=== PATIENT | male | born 1965 | race African-American/Black ===

== ENCOUNTER 2016-10-28 12:21 | Inpatient (IN) | payer OTHER ==
[2016-10-28 12:39] VITALS: BMI 22.4
--- NOTE | 2016-10-28 14:58 | HP ---
CIWA Score - CIWA Score Nausea/Vomitin Muscle Tremors: 4-Moderate,w/Arms Extend Anxiety: 3 Agitation: 2 Paroxysmal Sweats: 3 Orientation: 0-Oriented Tacttile Disturbances: 2-Mild Itch/Numbness/Burn Auditory Disturbances: 0-None Visual Disturbances: 0-None Headache: 2-Mild CIWA-Ar Total Score: 19 Admission ROS BHS - HPI Chief Complaint: "I am tire of using drugs and not feeling well. I need to stop." Pt. is here to detox from Alcohol. Allergies/Adverse Reactions: Allergies Allergy/AdvReac Type Severity Reaction Status Date / Time No Known Allergies Allergy Verified 10/28/16 13:11 History of Present Illness: Pt. is a 50 YO male here to Detox from Alcohol. Pt. had 1 previous Detox admission at [facility] many years ago. Exam Limitations: No Limitations - Ebola screening Have you traveled outside of the country in the last 21 days: No Have you had contact with anyone from an Ebola affected area: No Have you been sick,other than usual withdrawal symptoms: No Do you have a fever: No - Review of Systems Constitutional: Chills, Diaphoresis, Malaise, Night Sweats, Changes in sleep, Unintentional Wgt. Loss (Lost 10-15 lbs. over last 1 month.) EENT: reports: No Symptoms Reported Respiratory: reports: No Symptoms reported Cardiac: reports: Palpitations, Syncope (Last Episode: approx. 2 weeks ago.) GI: reports: Nausea : reports: Frequency, Urgency, Other (Difficulty initiating stream to void.) Musculoskeletal: reports: Joint Pain Integumentary: reports: No Symptoms Reported Neuro: reports: Headache, Numbness (Fingertips of Bilateral Hands and toes of Bilateral Feet.), Tingling (Fingertips of Bilateral Hands and toes of Bilateral Feet.), Tremors Endocrine: reports: No Symptoms Reported Hematology: reports: No Symptoms Reported Psychiatric: reports: Judgement Intact, Mood/Affect Appropiate, Orientated x3, Anxious Other Systems: Reviewed and Negative Patient History - Patient Medical History Hx Anemia: No Hx Asthma: No Hx Chronic Obstructive Pulmonary Disease (COPD): No Hx Cancer: No Hx Cardiac Disorders: No Hx Congestive Heart Failure: No Hx Hypertension: No Hx Hypercholesterolemia: No Hx Pacemaker: No HX Cerebrovascular Accident: No Hx Seizures: No Hx Dementia: No Hx Diabetes: No Hx Gastrointestinal Disorders: No Hx Liver Disease: No Hx Genitourinary Disorders: Yes (Prostate Disorder, Unsure of Name.) Hx Sexually Transmitted Disorders: No Hx Renal Disease (ESRD): No Hx Thyroid Disease: No Hx Human Immunodeficiency Virus (HIV): No (Last Tested approx. 6 months ago: NEGATIVE.) Hx Hepatitis C: No (Last Tested approx. 6 months ago: NEGATIVE.) Hx Depression: No Hx Suicide Attempt: No (PATIENT DENIES CURRENT SI / HI.) Hx Bipolar Disorder: No Hx Schizophrenia: No - Patient Surgical History Past Surgical History: No Hx Neurologic Surgery: No Hx Cataract Extraction: No Hx Cardiac Surgery: No Hx Lung Surgery: No Hx Breast Surgery: No Hx Breast Biopsy: No Hx Abdominal Surgery: No Hx Appendectomy: No Hx Cholecystectomy: No Hx Genitourinary Surgery: No Hx Orthopedic Surgery: No Anesthesia Reaction: No - PPD History Previous Implant?: Yes Documented Results: Negative w/o proof Implanted On Prior [facility] Admission?: No PPD to be Administered?: Yes - Reproductive History Patient is a Female of Child Bearing Age (11 -55 yrs old): No (PATIENT IS MALE.) - Smoking Cessation Smoking history: Current every day smoker Have you smoked in the past 12 months: Yes Aproximately how many cigarettes per day: 6 Cigars Per Day: 0 Hx Chewing Tobacco Use: No Initiated information on smoking cessation: Yes 'Breaking Loose' booklet given: 10/28/16 (GIVEN ON UNIT.) - Substance & Tx. History Hx Alcohol Use: Yes Hx Substance Use: Yes Substance Use Type: Alcohol, Cocaine, Marijuana Hx Substance Use Treatment: Yes (1 Previous Detox admission at [facility].) - Substances Abused Alcohol Route: Oral Frequency: Daily Amount used: vodka(1-2 pints) Age of first use: 18 Date of Last Use: 10/27/16 Cocaine Route: Smoking Frequency: Daily Amount used: $100 Age of first use: 18 Date of Last Use: 10/27/16 Marijuana/Hashish Route: Smoking Frequency: Daily Amount used: $20 Age of first use: 10 Date of Last Use: 10/27/16 Family Disease History - Family Disease History Family Disease History: CA: Sister (Breast.) Admission Physical Exam BHS - Vital Signs Vital Signs: Vital Signs - 24 hr 10/28/16 12:37 Temperature 96.0 F L Pulse Rate 74 Respiratory 20 Rate Blood Pressure 119/72 - Physical General Appearance: Yes: No Apparent Distress, Nourished, Appropriately Dressed , Tremorous HEENTM: Yes: Hearing grossly Normal, Normocephalic, Normal Voice, CYN, Pharynx Normal Respiratory: Yes: Chest Non-Tender, Lungs Clear, No Respiratory Distress Neck: Yes: No masses,lesions,Nodules, Supple, Trachea in good position Breast: Yes: Breast Exam Deferred Cardiology: Yes: Regular Rhythm, Regular Rate, S1, S2 Abdominal: Yes: Normal Bowel Sounds, Non Tender, Flat, Soft Genitourinary: Yes: Frequency, Uregency, Pain (Difficulty Initiating Void Stream.) Back: Yes: Normal Inspection Musculoskeletal: Yes: full range of Motion, Gait Steady, Muscle Pain Extremities: Yes: Normal Range of Motion, Non-Tender, Tremors Neurological: Yes: Fully Oriented, Alert, Normal Mood/Affect, Normal Response Integumentary: Yes: Normal Color, Dry, Warm Lymphatic: Yes: Within Normal Limits - Diagnostic (1) Alcohol dependence with uncomplicated withdrawal Current Visit: Yes Status: Acute (2) Cocaine dependence, uncomplicated Current Visit: Yes Status: Acute (3) Cannabis dependence, uncomplicated Current Visit: Yes Status: Acute (4) Nicotine dependence Current Visit: Yes Status: Chronic Qualifiers: Nicotine product type: cigarettes Substance use status: uncomplicated Qualified Code(s): F17.210 - Nicotine dependence, cigarettes, uncomplicated (5) Disorder of prostate, unspecified Current Visit: Yes Status: Chronic Cleared for Admission [facility] - Detox or Rehab [facility] Level of Care: Medically Managed Detox Regimen/Protocol: Librium [facility] Breath Alcohol Content Breath Alcohol Content: 0 Urine Drug Screen - Results Drug Screen Negative: No Urine Drug Screen Results: THC-Marijuana, KANA-Cocaine
[2016-10-28] MEDS ORDERED: MENTHOL/PHENOL 1 EACH UD MM PRN (15:16)
[2016-10-28] MEDS ORDERED: MAG HYDROX/AL HYDROX/SIMETH 30 ML UNIT-DOSE CUP PO PRN (15:16)
[2016-10-28] MEDS ORDERED: ACETAMINOPHEN 325 MG TABLET (FP) PO PRN (15:16)
[2016-10-28] MEDS ORDERED: hydrOXYzine PAMOATE 50 MG CAPSULE (FP) PO PRN (15:16)
[2016-10-28] MEDS ORDERED: IBUPROFEN 400 MG TABLET (FP) PO PRN (15:16)
[2016-10-28] MEDS ORDERED: MAGNESIUM CITRATE 300 ML BOTTLE PO PRN (15:16)
[2016-10-28] MEDS ORDERED: P-EPHED 60MG/TRIPROLIDI 2.5MG TABLET PO PRN (15:16)
[2016-10-28] MEDS ORDERED: NICOTINE POLACRILEX 2 MG GUM BUC PRN (15:16)
[2016-10-28] MEDS ORDERED: MAGNESIUM HYDROX 2400MG/30ML ORAL SUSPENSION 30 ML CUP PO PRN (15:16)
[2016-10-28] MEDS ORDERED: diphenhydrAMINE HCL 50 MG CAPSULE PO PRN (15:16)
[2016-10-28] MEDS ORDERED: LOPERAMIDE HCL 2 MG CAPSULE PO PRN (15:16)
[2016-10-28] MEDS ORDERED: chlordiazePOXIDE HCL 25 MG CAPSULE PO ONE (15:16)
[2016-10-28] MEDS ORDERED: guaiFENesin/D-METHORPHAN HB 10 ML UNIT-DOSE CUPS PO PRN (15:16)
[2016-10-28] MEDS ORDERED: chlordiazePOXIDE HCL 25 MG CAPSULE PO PRN (15:16)
[2016-10-28] MEDS: NICOTINE 14 MG/24 HOURS TOPICAL PATCH TD SCH (17:53)
[2016-10-28] MEDS: chlordiazePOXIDE HCL 25 MG CAPSULE PO SCH ×2 (17:53→23:25)
[2016-10-28 18:18] LABS: URINE APPEARANCE CLEAR; URINE BILIRUBIN NEGATIVE (NEGATIVE); URINE BLOOD NEGATIVE (NEGATIVE); URINE COLOR AMBER; URINE GLUCOSE (UA) NEGATIVE (NEGATIVE); URINE KETONE TRACE (NEGATIVE); URINE LEUK ESTERASE NEGATIVE (NEGATIVE); URINE NITRITE NEGATIVE (NEGATIVE); URINE UROBILINOGEN 2.0 E.U/dl E.U./dl (0.2-1.0)
[2016-10-28] MEDS ORDERED: ASPIRIN 325 MG ENTERIC COATED TABLET (FP) PO ONE (18:19)
--- NOTE | 2016-10-28 18:28 | PN ---
BHS Progress Note Note: Admission EKG reveals ST elevation in anterior leads with T-Wave invertion in 2, 3,avf.Pt. denies chest pain,however was told in the past that EKG was abnormal he does not know what the abnormality was. Vital Signs - 8 hr 10/28/16 12:37 Temperature 96.0 F L Pulse Rate 74 Respiratory 20 Rate Blood Pressure 119/72 Lungs : Clear Heart : RR,no murmur Dx. : Cocaine induced ischemia vs OR P : Transfer to ED, report given to Ms. AvilaMELT HOUSE SUPERVISOR
[2016-10-28 18:42] LABS: URINE PROTEIN 1+ (NEGATIVE)
[2016-10-28 18:46] LABS: URINE HYALINE CAST 3 /lpf; URINE MUCUS MODERATE; URINE RBC 3 /hpf (0-3); URINE WBC 1 /hpf (3-5)
[2016-10-28] MEDS: ASPIRIN COATED 81 MG TABLET.EC PO SCH (18:48)
[2016-10-28] MEDS: THIAMINE HCL 100 MG TABLET (FP) PO SCH (23:25)
[2016-10-29] MEDS: chlordiazePOXIDE HCL 25 MG CAPSULE PO SCH ×4 (05:33→22:39)
[2016-10-29] MEDS: TAMSULOSIN HCL 0.4 MG CAP.ER.24H (FP) PO SCH (09:29)
[2016-10-29] MEDS: PRENATAL VITAMINS W/ FOLIC ACID TABLET (FP) PO SCH (10:18)
[2016-10-29] MEDS: ASPIRIN COATED 81 MG TABLET.EC PO SCH (10:18)
[2016-10-29] MEDS: NICOTINE 14 MG/24 HOURS TOPICAL PATCH TD SCH (10:19)
--- NOTE | 2016-10-29 11:00 | EKG ---
Test Reason : Blood Pressure : / mmHG Vent. Rate : 052 BPM Atrial Rate : 052 BPM P-R Int : 160 ms QRS Dur : 114 ms QT Int : 456 ms P-R-T Axes : 014 066 -14 degrees QTc Int : 424 ms SINUS BRADYCARDIA VOLTAGE CRITERIA FOR LEFT VENTRICULAR HYPERTROPHY ST ELEVATION CONSIDER ANTEROLATERAL INJURY OR ACUTE INFARCT ACUTE MA / STEMI ABNORMAL ECG NO PREVIOUS ECGS AVAILABLE Confirmed by LEOLA HICKS, YVROSE ([id number]) on 10/29/2016 11:00:11 AM Referred By: Confirmed By:YVROSE BHAGAT MD
--- NOTE | 2016-10-29 13:13 | PN ---
[facility] CIWA - CIWA Score Nausea/Vomitin-Mild Nausea/No Vomiting Muscle Tremors: 4-Moderate,w/Arms Extend Anxiety: 4-Mod. Anxious/Guarded Agitation: 3 Paroxysmal Sweats: No Perspiration Orientation: 0-Oriented Tacttile Disturbances: 1-Very Mild Itch/Numbness Auditory Disturbances: 0-None Visual Disturbances: 0-None Headache: 2-Mild CIWA-Ar Total Score: 15 BHS Progress Note (SOAP) Subjective: Anxious, sweating, tremor, chills, interrupted sleep Objective: 10/29/16 13:10 Last Vital Signs Temp Pulse Resp BP Pulse Ox 98.6 F 66 18 115/83 10/29/16 09:17 10/29/16 09:17 10/29/16 09:17 10/29/16 09:17 Laboratory Tests 10/28/16 18:07 Urine Color Melody Urine Appearance Clear Urine pH 5.0 Ur Specific Archbold >= 1.030 H Urine Protein 1+ H Urine Glucose (UA) Negative Urine Ketones Trace H Urine Blood Negative Urine Nitrite Negative Urine Bilirubin Negative Urine Urobilinogen 2.0 e.u/dl Ur Leukocyte Esterase Negative Urine RBC 3 Urine WBC 1 Hyaline Casts 3 Urine Mucus Moderate UA: noted (1+ protein), admission labs in progress Assessment: 10/29/16 13:11 Withdrawal symptoms Noted with proteinuria Plan: Continue detox Proteinuria: encouraged to drink lots of water, repeat UA in AM Follow up on admission lab results
[2016-10-29 14:16] LABS: MCH 27.7 pg (25.7-33.7); MCHC 32.9 g/dl (32.0-35.9); MEAN CELL VOLUME 84.1 fl (80-96); MEAN PLT VOLUME 8.3 fl (7.5-11.1); PLATELET COUNT 208 K/MM3 (134-434); RDW 15.9 % (11.9-15.9); WHITE BLOOD COUNT 5.4 K/mm3 (4.0-10.0)
[2016-10-29 14:25] LABS: ALBUMIN 3.5 g/dl (3.4-5.0); BILIRUBIN,TOTAL 0.4 mg/dL (0.2-1.0); CALCIUM 8.6 mg/dL (8.5-10.1); COCKROFT - GAULT 77.17; CREATININE 1.3 mg/dL (0.7-1.3); TOT PROT 6.4 g/dl (6.4-8.2)
[2016-10-29 14:42] LABS: HIV 1 & 2 AB NEGATIVE; HIV 1 AGp24 NEGATIVE
[2016-10-29] MEDS: THIAMINE HCL 100 MG TABLET (FP) PO SCH (22:39)
[2016-10-30] MEDS: chlordiazePOXIDE HCL 25 MG CAPSULE PO SCH ×2 (05:31→10:10)
[2016-10-30] MEDS: TAMSULOSIN HCL 0.4 MG CAP.ER.24H (FP) PO SCH (10:10)
[2016-10-30] MEDS: PRENATAL VITAMINS W/ FOLIC ACID TABLET (FP) PO SCH (10:10)
[2016-10-30] MEDS: ASPIRIN COATED 81 MG TABLET.EC PO SCH (10:10)
[2016-10-30] MEDS: NICOTINE 14 MG/24 HOURS TOPICAL PATCH TD SCH (10:12)
--- NOTE | 2016-10-30 11:48 | PN ---
S CIWA - CIWA Score Nausea/Vomitin-No Nausea/No Vomiting Muscle Tremors: 3 Anxiety: 4-Mod. Anxious/Guarded Agitation: 3 Paroxysmal Sweats: 3 Orientation: 0-Oriented Tacttile Disturbances: 0-None Auditory Disturbances: 0-None Visual Disturbances: 0-None Headache: 0-None Present CIWA-Ar Total Score: 13 BHS Progress Note (SOAP) Subjective: Pt. was sent to ED because of ST elevation in graciela-lateral leads with T-wave inversion in the inferior leads.[facility]. Pt. is known to [facility],they were able to compare with previous EKGs. No changes were noted from previous EKG, cardiac enzymes are negative there no cardiac cath needed. Moreover they provided us with information concerning pt.' s mental health:he's on seroquel & celexa. Objective: 10/30/16 11:48 Vital Signs - 8 hr 10/30/16 10/30/16 06:13 09:14 Temperature 97.0 F L 97.4 F L Pulse Rate 61 70 Respiratory 16 18 Rate Blood Pressure 104/77 108/66 Laboratory Last Values WBC 5.4 K/mm3 (4.0-10.0) 10/29/16 07:12 RBC 4.78 M/mm3 (4.00-5.60) 10/29/16 07:12 Hgb 13.2 GM/dL (11.7-16.9) 10/29/16 07:12 Hct 40.2 % (35.4-49) 10/29/16 07:12 MCV 84.1 fl (80-96) 10/29/16 07:12 MCHC 32.9 g/dl (32.0-35.9) 10/29/16 07:12 RDW 15.9 % (11.9-15.9) 10/29/16 07:12 Plt Count 208 K/MM3 (134-434) 10/29/16 07:12 MPV 8.3 fl (7.5-11.1) 10/29/16 07:12 Sickle Cell Screen Negative (NEGATIVE) 10/29/16 07:12 Sodium 143 mmol/L (136-145) 10/29/16 07:12 Potassium 3.7 mmol/L (3.5-5.1) 10/29/16 07:12 Chloride 105 mmol/L (98-107) 10/29/16 07:12 Carbon Dioxide 27 mmol/L (21-32) 10/29/16 07:12 Anion Gap 11 (8-16) 10/29/16 07:12 BUN 13 mg/dL (7-18) 10/29/16 07:12 Creatinine 1.3 mg/dL (0.7-1.3) 10/29/16 07:12 Creat Clearance w eGFR 58.67 (>60) 10/29/16 07:12 Random Glucose 97 mg/dL (74-106) 10/29/16 07:12 Calcium 8.6 mg/dL (8.5-10.1) 10/29/16 07:12 Total Bilirubin 0.4 mg/dL (0.2-1.0) 10/29/16 07:12 AST 14 U/L (15-37) L 10/29/16 07:12 ALT 18 U/L (12-78) 10/29/16 07:12 Alkaline Phosphatase 55 U/L (45-117) 10/29/16 07:12 Total Protein 6.4 g/dl (6.4-8.2) 10/29/16 07:12 Albumin 3.5 g/dl (3.4-5.0) 10/29/16 07:12 Urine Color Melody 10/28/16 18:07 Urine Appearance Clear 10/28/16 18:07 Urine pH 5.0 (5.0-8.0) 10/28/16 18:07 Ur Specific Watson >= 1.030 (1.005-1.025) H 10/28/16 18:07 Urine Protein 1+ (NEGATIVE) H 10/28/16 18:07 Urine Glucose (UA) Negative (NEGATIVE) 10/28/16 18:07 Urine Ketones Trace (NEGATIVE) H 10/28/16 18:07 Urine Blood Negative (NEGATIVE) 10/28/16 18:07 Urine Nitrite Negative (NEGATIVE) 10/28/16 18:07 Urine Bilirubin Negative (NEGATIVE) 10/28/16 18:07 Urine Urobilinogen 2.0 e.u/dl E.U./dl (0.2-1.0) 10/28/16 18:07 Ur Leukocyte Esterase Negative (NEGATIVE) 10/28/16 18:07 Urine RBC 3 /hpf (0-3) 10/28/16 18:07 Urine WBC 1 /hpf (3-5) 10/28/16 18:07 Hyaline Casts 3 /lpf 10/28/16 18:07 Urine Mucus Moderate 10/28/16 18:07 RPR Titer Nonreactive (NONREACTIVE) 10/29/16 07:12 HIV 1&2 Antibody Screen Negative 10/29/16 07:12 HIV P24 Antigen Negative 10/29/16 07:12 labs noted Assessment: 10/30/16 11:48 Withdrawal sx. Plan: Continue detox Psych consult ordered
[2016-10-30 13:17] LABS: URINE APPEARANCE CLEAR; URINE BILIRUBIN NEGATIVE (NEGATIVE); URINE BLOOD NEGATIVE (NEGATIVE); URINE COLOR LTYELLOW; URINE GLUCOSE (UA) NEGATIVE (NEGATIVE); URINE KETONE NEGATIVE (NEGATIVE); URINE LEUK ESTERASE NEGATIVE (NEGATIVE); URINE NITRITE NEGATIVE (NEGATIVE); URINE PROTEIN NEGATIVE (NEGATIVE); URINE UROBILINOGEN NEGATIVE E.U./dl (0.2-1.0)
[2016-10-30] MEDS: chlordiazePOXIDE 5 MG CAPSULE PO SCH ×2 (17:10→22:15)
[2016-10-30] MEDS: THIAMINE HCL 100 MG TABLET (FP) PO SCH (22:15)
[2016-10-31] MEDS: chlordiazePOXIDE 5 MG CAPSULE PO SCH ×2 (05:30→10:26)
[2016-10-31] MEDS: TAMSULOSIN HCL 0.4 MG CAP.ER.24H (FP) PO SCH (09:20)
[2016-10-31] MEDS: NICOTINE 14 MG/24 HOURS TOPICAL PATCH TD SCH (09:21)
[2016-10-31] MEDS: PRENATAL VITAMINS W/ FOLIC ACID TABLET (FP) PO SCH (10:26)
[2016-10-31] MEDS: ASPIRIN COATED 81 MG TABLET.EC PO SCH (10:26)
--- NOTE | 2016-10-31 12:47 | CONSULT ---
[facility] Psychiatric Consult - Data Date of interview: 10/31/16 Admission source: [facility] Identifying data: Readmission to [facility] for this 50 y/o AA male seeking detox treatment for alcohol,cocaine and marijuana dependence.Patient is single without children,domiciled,unemployed and supported on Public Assistance. Substance Abuse History: - Smoking Cessation. Smoking history: Current every day smoker. Have you smoked in the past 12 months: Yes. Aproximately how many cigarettes per day: 6. Cigars Per Day: 0. Hx Chewing Tobacco Use: No. Initiated information on smoking cessation: Yes. 'Breaking Loose' booklet given : 10/28/16 (GIVEN ON UNIT.). - Substance & Tx. History. Hx Alcohol Use: Yes. Hx Substance Use: Yes. Substance Use Type: Alcohol, Cocaine, Marijuana. Hx Substance Use Treatment: Yes (1 Previous Detox admission at [facility].). - Substances Abused. Alcohol. Route: Oral. Frequency: Daily. Amount used: vodka(1-2 pints). Age of first use: 18. Date of Last Use: 10/27/16. Cocaine. Route: Smoking. Frequency: Daily. Amount used: $100. Age of first use: 18. Date of Last Use: 10/27/16. Marijuana/Hashish. Route: Smoking. Frequency: Daily. Amount used: $20. Age of first use: 10. Date of Last Use: . Confirmed by patient. Medical History: Benign prostatic hyperplasia. Psychiatric History: Patient admits to a remote history of psychiatric hospitalizations (more than 10 years ago at the [facility]).He endorses the diagnosis of Bipolar Disorder II.Mr Cotton states that he has been " off psychiatric medications " for several years and expresses no interest in resuming psychopharmacotherapy." I don't need pscychiatric medications." No history of suicide attempts. Physical/Sexual Abuse/Trauma History: Patient denies. Additional Comment: Urine Drug Screen Results: THC-Marijuana, KANA-Cocaine.Noted. Mental Status Exam - Mental Status Exam Alert and Oriented to: Time, Place, Person Cognitive Function: Good Patient Appearance: Well Groomed Mood: Hopeful, Euthymic Affect: Appropriate, Normal Range Patient Behavior: Appropriate, Cooperative Speech Pattern: Clear Voice Loudness: Normal Thought Process: Goal Oriented Thought Disorder: Not Present Hallucinations: Denies Suicidal Ideation: Denies Homicidal Ideation: Denies Insight/Judgement: Poor Sleep: Well (self-report) Appetite: Good Muscle strength/Tone: Normal Gait/Station: Normal Psychiatric Findings - Problem List ([place] 1, 2,3) (1) Alcohol dependence with uncomplicated withdrawal Current Visit: Yes Status: Acute (2) Cannabis dependence, uncomplicated Current Visit: Yes Status: Acute (3) Cocaine dependence, uncomplicated Current Visit: Yes Status: Acute (4) Nicotine dependence Current Visit: Yes Status: Acute Qualifiers: Nicotine product type: cigarettes Substance use status: uncomplicated Qualified Code(s): F17.210 - Nicotine dependence, cigarettes, uncomplicated (5) Disorder of prostate, unspecified Current Visit: Yes Status: Chronic - Initial Treatment Plan Initial Treatment Plan: Psychoeducation.Detoxification.Observation.
--- NOTE | 2016-10-31 14:37 | PN ---
BHS Progress Note (SOAP) Subjective: Sweating,interrupted sleep,restless Objective: 10/31/16 14:36 Vital Signs - 8 hr 10/31/16 10/31/16 09:32 13:23 Temperature 97.2 F L 96.9 F L Pulse Rate 64 69 Respiratory 18 18 Rate Blood Pressure 112/81 130/85 Assessment: 10/31/16 14:37 Withdrawal sx. Plan: Continue detox
[2016-10-31] MEDS: chlordiazePOXIDE HCL 10 MG CAPSULE PO SCH ×2 (17:23→22:12)
[2016-10-31] MEDS: THIAMINE HCL 100 MG TABLET (FP) PO SCH (22:12)
[2016-11-01] MEDS: chlordiazePOXIDE HCL 10 MG CAPSULE PO SCH (05:34)
[2016-11-01 06:26] VITALS: BP 111/73; PULSE 58; TEMP 96.9
--- NOTE | 2016-11-04 13:54 | DS ---
[facility] Detox Discharge Summary Admission Date: 10/28/16 Discharge Date: 11/01/16 - History Present History: Alcohol Dependence, Cannabis Dependence, Cocaine Dependence Pertinent Past History: BPH - Physical Exam Results Vital Signs: Vital Signs Temperature 96.9 F L 11/01/16 06:25 Pulse Rate 58 L 11/01/16 06:25 Respiratory Rate 18 11/01/16 06:25 Blood Pressure 111/73 11/01/16 06:25 O2 Sat by Pulse Oximetry (%) Pertinent Admission Physical Exam Findings: Withdrawal sx. - Treatment Hospital Course: Detox Protocol Followed, Detoxed Safely, Responded well, Discharged Condition Good, Rehab Referral Accepted Patient has Accepted a Rehab Referral to: [facility] - Medication Discharge Medications: Ambulatory Orders Tamsulosin HCl [Flomax] 0.4 mg PO DAILY 10/28/16 - Diagnosis (1) Alcohol dependence with uncomplicated withdrawal Status: Acute (2) Cannabis dependence, uncomplicated Status: Acute (3) Cocaine dependence, uncomplicated Status: Acute (4) Nicotine dependence Status: Acute Qualifiers: Nicotine product type: cigarettes Substance use status: uncomplicated Qualified Code(s): F17.210 - Nicotine dependence, cigarettes, uncomplicated (5) BPH (benign prostatic hyperplasia) Status: Acute - AMA Did Patient Leave Against Medical Advice: No
== END 2016-11-01 06:45 | disposition home or self-care (01) | DRG 774 ==
LOC: YASAS 12:21 → Y3N 13:48
PROVIDERS: ADMIT Internal Medicine; ATTEND Internal Medicine
PROC: HZ2ZZZZ Detoxification Services for Substance Abuse Treatment (ICD-10-PCS; principal; 2016-11-01)
DX: F10.230 Alcohol dependence with withdrawal, uncomplicated (principal); F14.20 Cocaine dependence, uncomplicated; F12.20 Cannabis dependence, uncomplicated; F17.210 Nicotine dependence, cigarettes, uncomplicated; N42.9 Disorder of prostate, unspecified
CPT/HCPCS: 36415; 80053; 81003; 81015; 85027; 85660; 86593; 87389; 93005; 93010

== ENCOUNTER 2018-09-09 09:44 | Inpatient (IN) | payer OTHER ==
[2018-09-09 10:05] VITALS: BMI 23.2
--- NOTE | 2018-09-09 10:37 | HP ---
"COWS - Scale Resting Pulse: 0= [place] 80 or Below Sweatin= Chills/Flushing Restless Observation: 0= Sits Still Pupil Size: 0= Normal to Room Light Bone or Joint Aches: 4=Acute Joint/Muscle Pain Runny Nose/ Eye Tearin= Constantly Teary/Runny GI Upset > 30mins: 1= Stomach Cramp Tremor Observation: 0= None Yawning Observation: 0= None Anxiety or Irritability: 2=Irritable/Anxious Goose Flesh Skin: 0=Smooth Skin COWS Score: 12 CIWA Score Nausea/Vomitin-Mild Nausea/No Vomiting Muscle Tremors: 4-Moderate,w/Arms Extend Anxiety: 4-Mod. Anxious/Guarded Agitation: 0-Normal Activity Paroxysmal Sweats: 3 Orientation: 0-Oriented Tacttile Disturbances: 0-None Auditory Disturbances: 0-None Visual Disturbances: 2-Mild Sensitivity Headache: 2-Mild CIWA-Ar Total Score: 16 - Admission Criteria [facility]AS[facility] Guidelines: Admission for Medically Managed Detox: Requires at least one of the followin. CIWA greater than 12 2. Seizures within the past 24 hours 3. Delirium tremens within the past 24 hours 4. Hallucinations within the past 24 hours 5. Acute intervention needed for co occurring medical disorder 6. Acute intervention needed for co occurring psychiatric disorder 7. Severe withdrawal that cannot be handled at a lower level of care (continued vomiting, continued diarrhea, abnormal vital signs) requiring intravenous medication and/or fluids 8. Admission ROS [facility] Allergies/Adverse Reactions: Allergies Allergy/AdvReac Type Severity Reaction Status Date / Time No Known Allergies Allergy Verified 09/09/18 09:58 History of Present Illness: Search Terms: [address], 1965 Search Date: 09/09/2018 10:31:58 AM The Drug Utilization Report below displays all of the controlled substance prescriptions, if any, that your patient has filled in the last twelve months. The information displayed on this report is compiled from pharmacy submissions to the Department, and accurately reflects the information as submitted by the pharmacies. This report was requested by: Valeria Ponce | Reference #: [id number] pt here requesting detox from heroin use , reports 3 bags /day x 1 week , prior use 1 bag occasionally , first age of use 6 years ago , latest use yesterday , current symptoms as above. Denies IVDU , denies OD crack cocaine : 100 $ x 2x/week etoh : 1 x 6-pk beer/day , 1 pint vodka /day since 1 year ago , reports sweating and tremors if not drinking , starts drinking 10 am , latest use last night , current symptoms as above , denies seizures or blackouts . cannabis : 20 $ /day tobacco : /2 ppd PMHX : denies PShx : denies meds : denies Exam Limitations: Clinical Condition - Ebola screening Have you traveled outside of the country in the last 21 days: No (N) Have you had contact with anyone from an Ebola affected area: No Do you have a fever: No - Review of Systems Constitutional: See HPI EENT: reports: See HPI (reading glasses) Respiratory: reports: No Symptoms reported Cardiac: reports: No Symptoms Reported GI: reports: See HPI : reports: No Symptoms Reported Musculoskeletal: reports: See HPI Integumentary: reports: No Symptoms Reported Neuro: reports: See HPI Endocrine: reports: No Symptoms Reported Psychiatric: reports: Orientated x3, Anxious Patient History - Patient Medical History Hx Anemia: No Hx Asthma: No Hx Chronic Obstructive Pulmonary Disease (COPD): No Hx Cancer: No Hx Cardiac Disorders: Yes (heart attack x 2) Hx Congestive Heart Failure: No Hx Hypertension: No Hx Hypercholesterolemia: No Hx Pacemaker: No HX Cerebrovascular Accident: No Hx Seizures: No Hx Dementia: No Hx Diabetes: No Hx Gastrointestinal Disorders: No Hx Liver Disease: No Hx Genitourinary Disorders: Yes (Prostate Disorder,) Hx Sexually Transmitted Disorders: No Hx Renal Disease (ESRD): No Hx Thyroid Disease: No Hx Human Immunodeficiency Virus (HIV): No (Last Tested approx. 6 months ago: NEGATIVE.) Hx Hepatitis C: No (Last Tested approx. 6 months ago: NEGATIVE.) Hx Depression: No Hx Suicide Attempt: No (DENIES SI/HI) Hx Bipolar Disorder: Yes Hx Schizophrenia: No - Patient Surgical History Past Surgical History: No Hx Neurologic Surgery: No Hx Cataract Extraction: No Hx Cardiac Surgery: No Hx Lung Surgery: No Hx Breast Surgery: No Hx Breast Biopsy: No Hx Abdominal Surgery: No Hx Appendectomy: No Hx Cholecystectomy: No Hx Genitourinary Surgery: No Hx Section: No Hx Orthopedic Surgery: No Anesthesia Reaction: No - PPD History Date: 12/13/17 Results: NEGATIVE - Smoking Cessation Smoking history: Current every day smoker Have you smoked in the past 12 months: Yes Aproximately how many cigarettes per day: 6 Cigars Per Day: 0 Hx Chewing Tobacco Use: No Initiated information on smoking cessation: No - Substances abused Heroin Substance route: Inhalation Frequency: Daily Amount used: 3 bags Age of first use: 52 Date of last use: 09/08/18 Crack Substance route: Smoking Frequency: 1-2 times per week Amount used: $100 Age of first use: 18 Date of last use: 09/08/18 Marijuana/Hashish Substance route: Smoking Frequency: Daily Amount used: $20 Age of first use: 10 Date of last use: 09/08/18 Alcohol Substance route: Oral Frequency: Daily Amount used: 2 PT. Vodka, 1 six pk beers( 12 oz cans). Age of first use: 18 Date of last use: 09/08/18 Family Disease History - Family Disease History Family Disease History: CA: Sister (Breast.), Other: Father () Admission Physical Exam [facility] - Vital Signs Vital Signs: Vital Signs - 24 hr 09/09/18 09:59 Temperature 98 F Pulse Rate 60 Respiratory 18 Rate - Physical General Appearance: Yes: Mild Distress, Anxious HEENTM: Yes: Hearing grossly Normal, Normocephalic, Normal Voice, Nasal Congestion, Rhinorrhea, Other (L eye pterigium) Respiratory: Yes: Chest Non-Tender, Lungs Clear, Normal Breath Sounds Neck: Yes: No masses,lesions,Nodules, Trachea in good position Cardiology: Yes: Regular Rhythm, Regular Rate, S1, S2 Abdominal: Yes: Non Tender, Soft Back: Yes: Normal Inspection Musculoskeletal: Yes: full range of Motion Extremities: Yes: Normal Range of Motion, Non-Tender, Tremors Neurological: Yes: Fully Oriented, Alert, Motor Strength 5/5 Integumentary: Yes: Warm, Other (clubbing x 10 fingers) - Diagnostic (1) Opioid abuse Current Visit: Yes Status: Acute (2) Alcohol dependence with uncomplicated withdrawal Current Visit: Yes Status: Acute (3) Cannabis dependence, uncomplicated Current Visit: Yes Status: Chronic (4) Cocaine dependence, uncomplicated Current Visit: Yes Status: Chronic (5) Nicotine dependence Current Visit: Yes Status: Chronic Qualifiers: Nicotine product type: cigarettes Breathalyzer - Breathalyzer Breathalyzer: 0 Urine Drug Screen - Test Device Lot number: [id number] Expiration date: 05/02/20 - Control Is test valid?: Yes - Results Drug screen NEGATIVE: No Urine drug screen results: THC-Marijuana, KANA-Cocaine, MOP-Opiates Inpatient Rehab Admission - Rehab Decision to Admit Inpatient rehab admission?: No"
[2018-09-09] MEDS ORDERED: MENTHOL/PHENOL 1 EACH UD MM PRN (10:44)
[2018-09-09] MEDS ORDERED: MELATONIN 5 MG TABLETS PO PRN (10:44)
[2018-09-09] MEDS ORDERED: ACETAMINOPHEN 325 MG TABLET (FP) PO PRN ×2 (10:44)
[2018-09-09] MEDS ORDERED: MAGNESIUM HYDROX 2400MG/30ML ORAL SUSPENSION 30 ML CUP PO PRN (10:44)
[2018-09-09] MEDS ORDERED: IBUPROFEN 400 MG TABLET (FP) PO PRN (10:44)
[2018-09-09] MEDS ORDERED: NICOTINE POLACRILEX 2 MG GUM BUC PRN (10:44)
[2018-09-09] MEDS ORDERED: BISMUTH SUBSALICYLATE 524 MG/30 ML UD PO PRN (10:44)
[2018-09-09] MEDS ORDERED: MAGNESIUM CITRATE 300 ML BOTTLE PO PRN (10:44)
[2018-09-09] MEDS ORDERED: MAG HYDROX/AL HYDROX/SIMETH 30 ML UNIT-DOSE CUP PO PRN (10:44)
[2018-09-09] MEDS: chlordiazePOXIDE HCL 10 MG CAPSULE PO PRN ×2 (11:42→19:40)
[2018-09-09] MEDS: chlordiazePOXIDE HCL 25 MG CAPSULE PO SCH ×2 (12:54→22:12)
--- NOTE | 2018-09-09 14:21 | EKG ---
Test Reason : Blood Pressure : / mmHG Vent. Rate : 060 BPM Atrial Rate : 060 BPM P-R Int : 162 ms QRS Dur : 106 ms QT Int : 414 ms P-R-T Axes : 069 076 014 degrees QTc Int : 414 ms NORMAL SINUS RHYTHM POSSIBLE LEFT ATRIAL ENLARGEMENT LEFT VENTRICULAR HYPERTROPHY ST ELEVATION, CONSIDER EARLY REPOLARIZATION ABNORMAL ECG WHEN COMPARED WITH ECG OF 11-DEC-2017 16:19, NO SIGNIFICANT CHANGE WAS FOUND Confirmed by MD Doine, Mike ([id number]) on 09/09/2018 2:21:24 PM Referred By: Confirmed By:Mike Parham MD
[2018-09-09 15:15] LABS: HEMATOCRIT 43.1 % (35.4-49); HEMOGLOBIN 13.8 GM/dL (11.7-16.9); MCH 27.3 pg (25.7-33.7); MCHC 32.1 g/dl (32.0-35.9); MEAN CELL VOLUME 85.1 fl (80-96); MEAN PLT VOLUME 8.1 fl (7.5-11.1); PLATELET COUNT 254 K/MM3 (134-434); RBC 5.06 M/mm3 (4.00-5.60); WHITE BLOOD COUNT 3.8 K/mm3 (4.0-10.0)
[2018-09-09 15:59] LABS: ALBUMIN 3.8 g/dl (3.4-5.0); ALK PHOS 65 U/L (45-117); ANION GAP 7 MMOL/L (8-16); BILIRUBIN,TOTAL 0.3 mg/dL (0.2-1); BLOOD UREA NITROGEN 10 mg/dL (7-18); CALCIUM 8.7 mg/dL (8.5-10.1); CHLORIDE 110 mmol/L (98-107); CO2 25 mmol/L (21-32); CREATININE 1.2 mg/dL (0.55-1.3); GLUCOSE,RANDOM 86 mg/dL (74-106); POTASSIUM 4.3 mmol/L (3.5-5.1); SGOT/AST 14 U/L (15-37); SGPT/ALT 20 U/L (13-61); SODIUM 141 mmol/L (136-145); TOT PROT 7.4 g/dl (6.4-8.2)
[2018-09-09] MEDS: THIAMINE HCL 100 MG TABLET (FP) PO SCH (22:12)
[2018-09-09] MEDS ORDERED: METHADONE HCL 10 MG TABLET (FOR DETOX USE ONLY) PO ONE (23:00)
[2018-09-10] MEDS: chlordiazePOXIDE HCL 25 MG CAPSULE PO SCH (06:05)
[2018-09-10] MEDS ORDERED: METHADONE HCL 5 MG TABLET (FOR DETOX USE ONLY) PO ONE (10:00)
[2018-09-10] MEDS: PRENATAL VITAMINS W/ FOLIC ACID TABLET (FP) PO SCH (10:13)
--- NOTE | 2018-09-10 11:20 | PN ---
[facility] CIWA - CIWA Score Nausea/Vomitin-Mild Nausea/No Vomiting Muscle Tremors: 1-None Visible, but [place] Anxiety: 1-Mildly Anxious Agitation: 0-Normal Activity Paroxysmal Sweats: No Perspiration Orientation: 0-Oriented Tacttile Disturbances: 0-None Auditory Disturbances: 0-None Visual Disturbances: 0-None Headache: 0-None Present CIWA-Ar Total Score: 3 [facility] COWS - Scale Resting Pulse: 0= NC 80 or Below Sweatin= No chills or Flushing Restless Observation: 0= Sits Still Pupil Size: 0= Normal to Room Light Bone or Joint Aches: 0= None Runny Nose/ Eye Tearin= None GI Upset > 30mins: 0= None Tremor Observation of Outstretched Hands: 0= None Yawning Observation: 0= None Anxiety or Irritability: 1=Feels Anxious/Irritable Goose Flesh Skin: 0=Smooth Skin COWS Score: 1 [facility] Progress Note (SOAP) Subjective: day #2 of detox. Pt states he is well on the detox protocols- has no complaints - would like to go to rehab O: Vital Signs - 24 hr 09/09/18 09/09/18 09/09/18 13:32 17:06 21:39 Temperature 98.1 F 98.1 F 96.3 F L Pulse Rate 75 65 61 Respiratory 18 19 18 Rate Blood Pressure 131/91 134/80 150/60 09/10/18 09/10/18 09/10/18 00:30 06:39 09:26 Temperature 96.8 F L 97.9 F Pulse Rate 61 68 Respiratory 18 18 18 Rate Blood Pressure 129/95 122/81 Laboratory Tests 09/09/18 09/09/18 09/09/18 11:00 11:00 11:00 WBC 3.8 L RBC 5.06 Hgb 13.8 Hct 43.1 MCV 85.1 MCH 27.3 MCHC 32.1 RDW 16.0 H Plt Count 254 MPV 8.1 Sodium 141 Potassium 4.3 Chloride 110 H Carbon Dioxide 25 Anion Gap 7 L BUN 10 Creatinine 1.2 Creat Clearance w eGFR 63.83 Random Glucose 86 Calcium 8.7 Total Bilirubin 0.3 AST 14 L ALT 20 Alkaline Phosphatase 65 Total Protein 7.4 Albumin 3.8 RPR Titer Nonreactive ess nl labs and VS a/p: continue detox protocols- pt doing well, will talk to counselor re prison plans
[2018-09-10] MEDS: chlordiazePOXIDE 5 MG CAPSULE PO SCH ×2 (13:00→22:18)
[2018-09-10] MEDS: chlordiazePOXIDE HCL 10 MG CAPSULE PO PRN (19:20)
[2018-09-10] MEDS: THIAMINE HCL 100 MG TABLET (FP) PO SCH (22:19)
[2018-09-11] MEDS: chlordiazePOXIDE 5 MG CAPSULE PO SCH (05:20)
--- NOTE | 2018-09-11 09:18 | PN ---
[facility] CIWA - CIWA Score Nausea/Vomitin Muscle Tremors: 2 Anxiety: 2 Agitation: 2 Paroxysmal Sweats: 1-Minimal Palms Moist Orientation: 0-Oriented Tacttile Disturbances: 1-Very Mild Itch/Numbness Auditory Disturbances: 1-Very Mild Visual Disturbances: 0-None Headache: 2-Mild CIWA-Ar Total Score: 13 [facility] Progress Note (SOAP) Subjective: alert,irritable,anxious,interrupted sleep,tremor,pain in the body Objective: 09/11/18 09:17 Vital Signs Temperature 98.2 F 09/11/18 09:01 Pulse Rate 66 09/11/18 09:01 Respiratory Rate 16 09/11/18 09:01 Blood Pressure 110/67 09/11/18 09:01 O2 Sat by Pulse Oximetry (%) 09/11/18 09:17 Laboratory Last Values WBC 3.8 K/mm3 (4.0-10.0) L 09/09/18 11:00 RBC 5.06 M/mm3 (4.00-5.60) 09/09/18 11:00 Hgb 13.8 GM/dL (11.7-16.9) 09/09/18 11:00 Hct 43.1 % (35.4-49) 09/09/18 11:00 MCV 85.1 fl (80-96) 09/09/18 11:00 MCH 27.3 pg (25.7-33.7) 09/09/18 11:00 MCHC 32.1 g/dl (32.0-35.9) 09/09/18 11:00 RDW 16.0 % (11.9-15.9) H 09/09/18 11:00 Plt Count 254 K/MM3 (134-434) 09/09/18 11:00 MPV 8.1 fl (7.5-11.1) 09/09/18 11:00 Sodium 141 mmol/L (136-145) 09/09/18 11:00 Potassium 4.3 mmol/L (3.5-5.1) 09/09/18 11:00 Chloride 110 mmol/L (98-107) H 09/09/18 11:00 Carbon Dioxide 25 mmol/L (21-32) 09/09/18 11:00 Anion Gap 7 MMOL/L (8-16) L 09/09/18 11:00 BUN 10 mg/dL (7-18) 09/09/18 11:00 Creatinine 1.2 mg/dL (0.55-1.3) 09/09/18 11:00 Creat Clearance w eGFR 63.83 (>60) 09/09/18 11:00 Random Glucose 86 mg/dL (74-106) 09/09/18 11:00 Calcium 8.7 mg/dL (8.5-10.1) 09/09/18 11:00 Total Bilirubin 0.3 mg/dL (0.2-1) 09/09/18 11:00 AST 14 U/L (15-37) L 09/09/18 11:00 ALT 20 U/L (13-61) 09/09/18 11:00 Alkaline Phosphatase 65 U/L (45-117) 09/09/18 11:00 Total Protein 7.4 g/dl (6.4-8.2) 09/09/18 11:00 Albumin 3.8 g/dl (3.4-5.0) 09/09/18 11:00 RPR Titer Nonreactive (NONREACTIVE) 09/09/18 11:00 Assessment: 09/11/18 09:17 withdrawal symptom Plan: continue detox
[2018-09-11] MEDS ORDERED: METHADONE HCL 10 MG TABLET (FOR DETOX USE ONLY) PO ONE (10:00)
[2018-09-11] MEDS: PRENATAL VITAMINS W/ FOLIC ACID TABLET (FP) PO SCH (10:20)
[2018-09-11] MEDS ORDERED: chlordiazePOXIDE HCL 10 MG CAPSULE PO PRN (13:00)
[2018-09-11] MEDS: chlordiazePOXIDE HCL 10 MG CAPSULE PO SCH ×2 (14:23→22:03)
[2018-09-11] MEDS: THIAMINE HCL 100 MG TABLET (FP) PO SCH (22:03)
[2018-09-12] MEDS: chlordiazePOXIDE HCL 10 MG CAPSULE PO SCH (05:09)
[2018-09-12] MEDS ORDERED: METHADONE HCL 5 MG TABLET (FOR DETOX USE ONLY) PO ONE (06:00)
--- NOTE | 2018-09-12 08:45 | DS ---
[facility] Detox Discharge Summary Admission Date: 09/09/18 Discharge Date: 09/12/18 - History Present History: Alcohol Dependence, Cannabis Dependence, Cocaine Dependence, Opioid Dependence - Physical Exam Results Vital Signs: Vital Signs Temperature 97.7 F 09/12/18 06:00 Pulse Rate 57 L 09/12/18 06:00 Respiratory Rate 18 09/12/18 06:00 Blood Pressure 117/82 09/12/18 06:00 O2 Sat by Pulse Oximetry (%) - Treatment Hospital Course: Detox Protocol Followed, Detoxed Safely, Responded well, Discharged Condition Good, Rehab Referral Accepted - Medication Discharge Medications: Ambulatory Orders NK [No Known Home Medication] 09/09/18 - Diagnosis (1) Alcohol dependence with uncomplicated withdrawal Current Visit: Yes Status: Chronic (2) Opioid abuse Current Visit: Yes Status: Chronic (3) Cannabis dependence, uncomplicated Current Visit: Yes Status: Chronic (4) Cocaine dependence, uncomplicated Current Visit: Yes Status: Chronic (5) Nicotine dependence Current Visit: Yes Status: Chronic Qualifiers: Nicotine product type: cigarettes Substance use status: uncomplicated Qualified Code(s): F17.210 - Nicotine dependence, cigarettes, uncomplicated (6) Old [place] (myocardial infarction) Current Visit: No Status: Acute (7) Weight loss Current Visit: No Status: Acute (8) BPH (benign prostatic hyperplasia) Current Visit: No Status: Chronic Qualifiers: Lower urinary tract symptom presence: symptoms absent Qualified Code(s): N40.0 - Benign prostatic hyperplasia without lower urinary tract symptoms (9) Disorder of prostate, unspecified Current Visit: No Status: Chronic (10) Bipolar II disorder Current Visit: No Status: Suspected (11) Heart attack Current Visit: No Status: Resolved Qualifiers: Myocardial infarction type: ST elevation myocardial infarction Involved coronary artery: other anterior wall coronary artery Qualified Code(s): I21.09 - ST elevation (STEMI) myocardial infarction involving other coronary artery of anterior wall - AMA Did Patient Leave Against Medical Advice: No (referred to [facility])
[2018-09-12 09:15] VITALS: BP 115/74; PULSE 58; TEMP 98.4
[2018-09-12] MEDS: PRENATAL VITAMINS W/ FOLIC ACID TABLET (FP) PO SCH (10:40)
== END 2018-09-12 11:15 | disposition home or self-care (01) | DRG 773 ==
LOC: YASAS 09:44 → Y6N 10:55
PROVIDERS: ADMIT Surgery; ATTEND Surgery
PROC: HZ2ZZZZ Detoxification Services for Substance Abuse Treatment (ICD-10-PCS; principal; 2018-09-09)
DX: F11.20 Opioid dependence, uncomplicated (principal); F10.230 Alcohol dependence with withdrawal, uncomplicated; F14.20 Cocaine dependence, uncomplicated; F12.20 Cannabis dependence, uncomplicated; F17.210 Nicotine dependence, cigarettes, uncomplicated; F31.81 Bipolar II disorder; I25.2 Old myocardial infarction; N40.0 Benign prostatic hyperplasia without lower urinary tract symptoms
CPT/HCPCS: 36415; 80053; 85027; 86593; 93005; 93010

== ENCOUNTER 2022-02-08 11:58 | Inpatient (IN) | payer OTHER ==
[2022-02-08 12:40] VITALS: BMI 21.2
[2022-02-08] MEDS ORDERED: IBUPROFEN 600 MG TABLET (FP) PO PRN (16:05)
[2022-02-08] MEDS ORDERED: BENZOCAINE/MENTHOL (CHLORASEPTIC ) LOZENGE MM PRN (16:05)
[2022-02-08] MEDS ORDERED: MAGNESIUM HYDROX 2400MG/30ML ORAL SUSPENSION 30 ML CUP PO PRN (16:05)
[2022-02-08] MEDS ORDERED: MAGNESIUM CITRATE 300 ML BOTTLE PO PRN (16:05)
[2022-02-08] MEDS ORDERED: chlordiazePOXIDE HCL 25 MG CAPSULE PO PRN (16:05)
[2022-02-08] MEDS ORDERED: IBUPROFEN 400 MG TABLET (FP) PO PRN (16:05)
[2022-02-08] MEDS ORDERED: MAG HYDROX/AL HYDROX/SIMETH 30 ML UNIT-DOSE CUP PO PRN (16:05)
[2022-02-08] MEDS ORDERED: ONDANSETRON *ODT* 4 MG TABLET SL PRN (16:05)
[2022-02-08] MEDS ORDERED: METHOCARBAMOL 500 MG TABLET PO PRN (16:05)
[2022-02-08] MEDS ORDERED: BISMUTH SUBSALICYLATE 524 MG/30 ML PO PRN (16:05)
[2022-02-08] MEDS ORDERED: NICOTINE 10 MG CARTRIDGE (INHALER) IH PRN (16:05)
[2022-02-08] MEDS ORDERED: ACETAMINOPHEN 325 MG TABLET (FP) PO PRN ×2 (16:05)
[2022-02-08] MEDS ORDERED: DICYCLOMINE HCL 10 MG CAPSULE PO PRN (16:05)
[2022-02-08] MEDS ORDERED: LOPERAMIDE HCL 2 MG CAPSULE PO PRN (16:05)
[2022-02-08] MEDS: chlordiazePOXIDE HCL 25 MG CAPSULE PO SCH ×2 (20:12→23:05)
[2022-02-08] MEDS: hydrOXYzine PAMOATE 25 MG CAPSULE (FP) PO SCH ×2 (20:13→23:21)
[2022-02-08] MEDS: THIAMINE HCL 100 MG TABLET (FP) PO SCH (23:05)
[2022-02-08] MEDS: MELATONIN 5 MG TABLETS PO SCH (23:05)
[2022-02-09] MEDS: chlordiazePOXIDE HCL 25 MG CAPSULE PO SCH ×4 (07:06→23:13)
[2022-02-09] MEDS: hydrOXYzine PAMOATE 25 MG CAPSULE (FP) PO SCH ×5 (07:06→23:14)
[2022-02-09] MEDS ORDERED: PRENATAL VITAMINS W/ FOLIC ACID TABLET (FP) PO SCH (10:00)
[2022-02-09 10:43] LABS: HEMOGLOBIN 12.7 GM/dL (11.7-16.9); MCH 27.1 pg (25.7-33.7); MCHC 32.7 g/dl (32.0-35.9); MEAN PLT VOLUME 8.1 fl (7.5-11.1); PLATELET COUNT 212 10^3/uL (134-434); RDW 15.3 % (11.9-15.9); WHITE BLOOD COUNT 5.7 K/mm3 (4.0-10.0)
[2022-02-09 10:53] LABS: ALBUMIN 3.1 g/dl (3.4-5.0); BLOOD UREA NITROGEN 9.5 mg/dL (7-18)
[2022-02-09 10:55] LABS: CALCIUM 8.4 mg/dL (8.5-10.1); CREATININE 1.1 mg/dL (0.55-1.3)
[2022-02-09 10:56] LABS: BILIRUBIN,TOTAL 0.3 mg/dL (0.2-1); TOT PROT 6.4 g/dl (6.4-8.2)
[2022-02-09 18:01] VITALS: RESP 18
[2022-02-09] MEDS: MELATONIN 5 MG TABLETS PO SCH (23:13)
[2022-02-09] MEDS: THIAMINE HCL 100 MG TABLET (FP) PO SCH (23:14)
[2022-02-10] MEDS: hydrOXYzine PAMOATE 25 MG CAPSULE (FP) PO SCH ×2 (06:06→06:21)
[2022-02-10] MEDS: chlordiazePOXIDE HCL 25 MG CAPSULE PO SCH ×2 (06:07→06:21)
[2022-02-10 06:27] VITALS: BP 129/86; PULSE 55; TEMP 98.2
[2022-02-11] MEDS ORDERED: chlordiazePOXIDE HCL 10 MG CAPSULE PO PRN
[2022-02-11] MEDS ORDERED: chlordiazePOXIDE HCL 10 MG CAPSULE PO SCH (05:00)
[2022-02-12] MEDS ORDERED: chlordiazePOXIDE HCL 10 MG CAPSULE PO SCH (05:00)
[2022-02-13] MEDS ORDERED: chlordiazePOXIDE HCL 10 MG CAPSULE PO ONE (05:00)
== END 2022-02-10 09:30 | disposition left against medical advice (07) | DRG 770 ==
LOC: YASAS 11:58 → Y6N 14:42
PROVIDERS: ADMIT Allergy & Immunology; ATTEND Surgery
PROC: HZ2ZZZZ Detoxification Services for Substance Abuse Treatment (ICD-10-PCS; principal; 2022-02-08)
DX: F10.230 Alcohol dependence with withdrawal, uncomplicated (principal); F14.20 Cocaine dependence, uncomplicated; F12.20 Cannabis dependence, uncomplicated; F17.210 Nicotine dependence, cigarettes, uncomplicated; N40.0 Benign prostatic hyperplasia without lower urinary tract symptoms; I25.2 Old myocardial infarction; Z87.09 Personal history of other diseases of the respiratory system
CPT/HCPCS: 36415; 80053; 85027; 86780; 87811; C9803-CS; U0003; U0005